=== PATIENT | male | born 1985 | race Caucasian/White ===

== ENCOUNTER 2024-08-25 13:27 | Emergency (ER) | payer BC ==
[~2024-08-25] VITALS: Ht 170.2 cm; Wt 95.3 kg
[2024-08-25] MEDS: famotidine 20mg tablet PO ONE (14:13)
[2024-08-25] MEDS: predniSONE 20 mg tablet PO ONE (14:14)
[2024-08-25] MEDS: hydrOXYzine 25 MG tablet PO ONE (14:14)
[2024-08-25] MEDS ORDERED: HYDR-3686 PO (14:19)
[2024-08-25] MEDS ORDERED: PRED20TA PO (14:19)
[2024-08-25] MEDS ORDERED: FAMO-129 PO (14:19)
[2024-08-25 14:32] VITALS: BP 127/62; PULSE 66; RESP 16; TEMP 98.9; O2SAT 98
== END 2024-08-25 14:35 | disposition home or self-care (01) ==
LOC: ER 13:28
DX: L29.89 Other pruritus (principal); Z79.899 Other long term (current) drug therapy
CPT/HCPCS: 99284; J7512; Q0177